=== PATIENT | female | born 1985 | race Caucasian/White ===

== ENCOUNTER 2018-09-03 16:38 | Emergency (ER) | payer MEDICAID, OTHER ==
[~2018-09-03] VITALS: Ht 160 cm; Wt 98.0 kg
[~2018-09-03 16:38] MED LIST: ACHD5005 PO; DCS100C PO; FRS325T PO; HYDR-1231 PO; HYDR-757 PO; Ibuprofen PO; KCL20TCR PO; NITR-65 PO; PREN1TAB25 PO
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
--- OUTSIDE RECORDS SUMMARY | 2018-09-03 16:45 | XMS REPORT ---
Author Author JOANN AGUILAR Organization [facility] Address [address] [place] [address] Care Team Providers Care Farmworker Fur Name Role Phone JOANN AGUILAR Unavailable PROBLEMS Unknown Problems ALLERGIES No Information ENCOUNTERS Encounter Location Date Diagnosis [facility] [id number] [place] [phone] Nov, [facility] [id number] [place] [phone] 10 Nov, 2017 Encounter for screening for dental disorder Z13.84 [facility] [id number] [place] [address] August, History of TB skin testing Z92.89 and Tuberculosis screening Z11.1 [facility] [address] [place] [phone] August, History of TB skin testing Z92.89 and Tuberculosis screening Z11.1 IMMUNIZATIONS No Known Immunizations SOCIAL HISTORY Never Assessed REASON FOR VISIT Xray (walk-in) MHill RT(R) PLAN OF CARE VITAL SIGNS MEDICATIONS Unknown Medications RESULTS Name Result Date Reference Range Xray : Chest 2 View (IN HOUSE) 2017-08-24 PROCEDURES Procedure Date Ordered Result Body Site X-RAY EXAM CHEST 2 VIEWS August 24, 2017 INSTRUCTIONS MEDICATIONS ADMINISTERED No Known Medications
--- OUTSIDE RECORDS SUMMARY | 2018-09-03 16:45 | XMS REPORT ---
Author Author JOANN AGUILAR [facility] Address [address] [place] [address] Care Team Providers Care Installer Molding And Trim Name Role Phone JOANN AGUILAR Unavailable PROBLEMS Unknown Problems ALLERGIES No Information ENCOUNTERS Encounter Location Date Diagnosis [facility] [id number] [place] [address] [phone] Nov, [facility] [id number] [place] [phone] 10 Nov, 2017 Encounter for screening for dental disorder Z13.84 [facility] [id number] [place] [address] August, History of TB skin testing Z92.89 and Tuberculosis screening Z11.1 [facility] [address] [place] [phone] August, History of TB skin testing Z92.89 and Tuberculosis screening Z11.1 IMMUNIZATIONS No Known Immunizations SOCIAL HISTORY Never Assessed REASON FOR VISIT TB Test PLAN OF CARE VITAL SIGNS MEDICATIONS Unknown Medications RESULTS No Results PROCEDURES No Known procedures INSTRUCTIONS MEDICATIONS ADMINISTERED No Known Medications
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
--- OUTSIDE RECORDS SUMMARY | 2018-09-03 16:45 | XMS REPORT | Continuity of Care Document ---
Author Organization Unknown Address Unknown Allergies There is no data. Medications There is no data. Problems There is no data. Procedures There is no data. Results There is no data. Encounters ACCT No. Visit Date/Time Discharge Status Pt. Type Provider Facility Loc./Unit Complaint [id number] 08/10/2018 16:40:00 08/10/2018 23:59:59 [facility] Outpatient LEONA CARUSO [facility] [id number] 10/01/2013 18:27:00 10/03/2013 11:00:00 DIS Inpatient [id number] 09/28/2013 15:07:00 09/29/2013 09:50:00 DIS Inpatient [id number] 05/31/2013 21:54:00 06/01/2013 00:11:00 DIS Emergency
[2018-09-03] MEDS ORDERED: NS IV 1000 ML 1,000 ML IV ONE (17:18)
[2018-09-03 17:30] LABS: BASOPHILS # (AUTO) 0.1 10^3/uL (0.0-0.1); BASOPHILS % (AUTO) 1 % (0-10); EOSINOPHILS # (AUTO) 0.1 10^3/uL (0.0-0.3); EOSINOPHILS % (AUTO) 2 % (0-10); HEMATOCRIT 43 % (35-52); HEMOGLOBIN 14.4 G/DL (11.5-16.0); LYMPHOCYTES % (AUTO) 11 % (12-44); MEAN CORPUSCULAR HEMOGLOBIN 30 PG (25-34); MEAN CORPUSCULAR HGB CONC 33 G/DL (32-36); MEAN CORPUSCULAR VOLUME 90 FL (80-99); MEAN PLATELET VOLUME 10.5 FL (7.4-10.4); MONOCYTES # (AUTO) 0.9 X 10^3 (0.0-1.0); MONOCYTES % (AUTO) 9 % (0-12); NEUTROPHILS # (AUTO) 7.4 X 10^3 (1.8-7.8); NEUTROPHILS % (AUTO) 78 % (42-75); PLATELET COUNT 256 10^3/uL (130-400); RED CELL DISTRIBUTION WIDTH 12.3 % (10.0-14.5); WHITE BLOOD COUNT 9.5 10^3/uL (4.3-11.0)
[2018-09-03] MEDS ORDERED: KETOROLAC 30 MG/ML VIAL IVP ONE (17:30)
[2018-09-03] MEDS ORDERED: ACETAMINOPHEN 500 MG TAB (TYLENOL) PO ONE (17:30)
[2018-09-03 17:53] LABS: ALANINE AMINOTRANSFERASE 35 U/L (0-55); ALBUMIN 4.1 GM/DL (3.2-4.5); ALKALINE PHOSPHATASE 56 U/L (40-136); BILIRUBIN,TOTAL 0.4 MG/DL (0.1-1.0); BUN/CREATININE RATIO 9; CALCIUM 9.1 MG/DL (8.5-10.1); CARBON DIOXIDE 25 MMOL/L (21-32); CHLORIDE 105 MMOL/L (98-107); CREATININE SERUM 0.97 MG/DL (0.60-1.30); GFR ESTIMATED > 60; GLUCOSE 98 MG/DL (70-105); POTASSIUM 3.9 MMOL/L (3.6-5.0); SODIUM 138 MMOL/L (135-145); TOTAL PROTEIN 7.1 GM/DL (6.4-8.2)
[2018-09-03 17:57] LABS: BILIRUBIN,URINE NEGATIVE (NEGATIVE); CLARITY,URINE CLEAR; COLOR,URINE YELLOW; GLUCOSE, URINE (UA) NEGATIVE (NEGATIVE); KETONES,URINE NEGATIVE (NEGATIVE); LEUKOCYTE ESTERASE ,URINE NEGATIVE (NEGATIVE); NITRITE,URINE NEGATIVE (NEGATIVE); PH,URINE 8 (5-9); PROTEIN,URINE NEGATIVE (NEGATIVE); UROBILINOGEN,URINE NORMAL (NORMAL)
[2018-09-03 18:07] LABS: BACTERIA,URINE NEGATIVE /HPF
[2018-09-03 18:14] LABS: PROTHROMBIN TIME PATIENT 13.7 SEC (12.2-14.7)
--- NOTE | 2018-09-03 18:46 | ED General ---
General Chief Complaint: Fever-Adult/Adol Stated Complaint: FEVER 102/ELEV BP 166/90 Nursing Triage Note: Pt to ED with c/o fever as high as "almost 103" today. Pt also c/o cough, sore throat, fatigue, weakness, malaise. Pt reports working at [facility] and had a negative strep screen, and negative chest xray there today. Pt reports symptoms began today. Pt denies taking any antipyretics. Nursing Sepsis Screen: No Definite Risk Source of Information: Patient Exam Limitations: No Limitations History of Present Illness Date Seen by Provider: September 03, 2018 Time Seen by Provider: 17:04 Initial Comments This 33-year-old young lady presents to the emergency room with complaints of fever, cough, sore throat, and myalgias of abrupt onset today. She had to strep test performed, one at home and one at the clinic, both of which were negative. She also had a chest x-ray performed at [facility] where she works. This x-ray was unremarkable. Patient was advised by other staff to come to the emergency room for evaluation. She is notably tachycardic on presentation. Allergies and Home Medications Allergies Coded Allergies: latex (Verified Allergy, Mild, 05/31/13) cefpodoxime (Verified Allergy, Unknown, 09/28/13) Home Medications Docusate Sodium 100 Mg Cap, 100 MG PO BID PRN for CONSTIPATION Prescribed by: CADEN JIANG on 10/02/1352 Ferrous Sulfate 325 Mg Tab, 325 MG PO DAILY@0700 Prescribed by: CADEN JIANG on 10/02/13 0852 Hydrocodone Bit/Acetaminophen 1 Tab Tab, 2 TAB PO Q4H PRN for pain Prescribed by: CADEN JIANG on 10/02/13 0852 Vit#96/Ferrous Fum/Fa 1 Each Tablet, 1 EACH PO DAILY, (Reported) [Ibuprofen] 600 MG TAB, 600 MG PO Q6H PRN for PAIN Prescribed by: CADEN JIANG on 10/02/13 0852 Patient Home Medication List Home Medication List Reviewed: Yes Review of Systems Review of Systems Constitutional: see HPI EENTM: see HPI Respiratory: see HPI Cardiovascular: see HPI Gastrointestinal: no symptoms reported Genitourinary: no symptoms reported : No Musculoskeletal: see HPI Skin: no symptoms reported Psychiatric/Neurological: No Symptoms Reported Hematologic/Lymphatic: No Symptoms Reported Immunological/Allergic: no symptoms reported Past Sytjldk-Ibguuw-Eozwpw Hx Past Med/Social Hx: Reviewed and Corrections made Patient Social History Alcohol Use: Occasionally Uses Recreational Drug Use: No Smoking Status: Current Everyday Smoker Type Used: Cigarettes 2nd Hand Smoke Exposure: Yes Recent Foreign Travel: No Contact w/Someone Who Travel: No Recent Infectious Disease Expo: No Immunizations Up To Date Tetanus Booster (TDap): Unknown Date of Influenza Vaccine: Jan 24, 2013 Past Medical History Surgeries: Yes Appendectomy, Section, Gallbladder, Tubal Ligation Respiratory: No Cardiac: No Neurological: No : No Reproductive Disorders: No Gastrointestinal: No Musculoskeletal: No Endocrine: Yes (Previous hx of thyroid disease. ) Cancer: No Psychosocial: No Integumentary: No Blood Disorders: No Physical Exam Vital Signs Vital Signs - First Documented 09/03/18 16:50 Temp 98.3 Pulse 129 Resp 18 B/P (MAP) 142/90 (107) Pulse Ox 99 O2 Delivery Room Air Capillary Refill : Less Than 3 Seconds Height, Weight, BMI Height: 5'3.00" Weight: 216lbs. 0.0oz. 97.925085tn; BMI Method:Stated General Appearance: No Apparent Distress, WD/WN HEENT: PERRL/EOMI, TMs Normal, Normal ENT Inspection, Pharynx Normal Neck: Normal Inspection Respiratory: Lungs Clear, Normal Breath Sounds, No Accessory Muscle Use, No Respiratory Distress Cardiovascular: No Edema, No Murmur, Normal Peripheral Pulses, Tachycardia Gastrointestinal: Normal Bowel Sounds, Non Tender, Soft Extremity: Normal Inspection, No Pedal Edema Neurologic/Psychiatric: Alert, Oriented x3, No Motor/Sensory Deficits, Normal Mood/Affect, management expert II-XII Norm as Tested Skin: Normal Color, Warm/Dry Focused Exam Lactate Level 09/03/18 17:10: Lactic Acid Level 0.97 Lactic Acid Level Progress/Results/Core Measures Suspected Sepsis Recent Fever Within 48 Hours: No Infection Criteria Present: None New/Unexplained Altered Menta: No Sepsis Screen: No Definite Risk SIRS Temperature:98.3 Pulse: 129 Respiratory Rate: 18 Laboratory Tests 09/03/18 17:10: White Blood Count 9.5 Blood Pressure 142 /90 Mean: 107 09/03/18 17:10: Lactic Acid Level 0.97 Laboratory Tests 09/03/18 17:10: Creatinine 0.97, INR Comment 1.0, Platelet Count 256, Total Bilirubin 0.4 Results/Orders Lab Results Laboratory Tests Test 09/03/18 17:10 09/03/18 17:48 Range/Units White Blood Count 9.5 4.3-11.0 10^3/uL Red Blood Count 4.79 4.35-5.85 10^6/uL Hemoglobin 14.4 11.5-16.0 G/DL Hematocrit 43 35-52 % Mean Corpuscular Volume 90 80-99 FL Mean Corpuscular Hemoglobin 30 25-34 PG Mean Corpuscular Hemoglobin Concent 33 32-36 G/DL Red Cell Distribution Width 12.3 10.0-14.5 % Platelet Count 256 130-400 10^3/uL Mean Platelet Volume 10.5 H 7.4-10.4 FL Neutrophils (%) (Auto) 78 H 42-75 % Lymphocytes (%) (Auto) 11 L 12-44 % Monocytes (%) (Auto) 9 0-12 % Eosinophils (%) (Auto) 2 0-10 % Basophils (%) (Auto) 1 0-10 % Neutrophils # (Auto) 7.4 1.8-7.8 X 10^3 Lymphocytes # (Auto) 1.0 1.0-4.0 X 10^3 Monocytes # (Auto) 0.9 0.0-1.0 X 10^3 Eosinophils # (Auto) 0.1 0.0-0.3 10^3/uL Basophils # (Auto) 0.1 0.0-0.1 10^3/uL Prothrombin Time 13.7 12.2-14.7 SEC INR Comment 1.0 0.8-1.4 Activated Partial Thromboplast Time 31 24-35 SEC Sodium Level 138 135-145 MMOL/L Potassium Level 3.9 3.6-5.0 MMOL/L Chloride Level 105 98-107 MMOL/L Carbon Dioxide Level 25 21-32 MMOL/L Anion Gap 8 5-14 MMOL/L Blood Urea Nitrogen 9 7-18 MG/DL Creatinine 0.97 0.60-1.30 MG/DL Estimat Glomerular Filtration Rate > 60 BUN/Creatinine Ratio 9 Glucose Level 98 70-105 MG/DL Lactic Acid Level 0.97 0.50-2.00 MMOL/L Calcium Level 9.1 8.5-10.1 MG/DL Corrected Calcium 9.0 8.5-10.1 MG/DL Total Bilirubin 0.4 0.1-1.0 MG/DL Aspartate Amino Transf (AST/SGOT) 33 5-34 U/L Alanine Aminotransferase (ALT/SGPT) 35 0-55 U/L Alkaline Phosphatase 56 40-136 U/L C-Reactive Protein High Sensitivity 0.90 H 0.00-0.50 MG/DL Total Protein 7.1 6.4-8.2 GM/DL Albumin 4.1 3.2-4.5 GM/DL Serum Test, Qualitative NEGATIVE NEGATIVE Monoscreen NEGATIVE NEGATIVE Urine Color YELLOW Urine Clarity CLEAR Urine pH 8 5-9 Urine Specific [place] 1.010 L 1.016-1.022 Urine Protein NEGATIVE NEGATIVE Urine Glucose (UA) NEGATIVE NEGATIVE Urine Ketones NEGATIVE NEGATIVE Urine Nitrite NEGATIVE NEGATIVE Urine Bilirubin NEGATIVE NEGATIVE Urine Urobilinogen NORMAL NORMAL MG/DL Urine Leukocyte Esterase NEGATIVE NEGATIVE Urine RBC (Auto) NEGATIVE NEGATIVE Urine RBC NONE /HPF Urine WBC NONE /HPF Urine Squamous Epithelial Cells 2-5 /HPF Urine Crystals NONE /LPF Urine Bacteria NEGATIVE /HPF Urine Casts NONE /LPF Urine Mucus NEGATIVE /LPF Urine Culture Indicated CULTURE PENDING Micro Results Microbiology 09/03/18 Influenza Types A,B Antigen ([facility]) - Final, Complete My Orders Orders - JIM MELÉNDEZ MD Cbc With Automated Diff (09/03/18 17:05) Comprehensive Metabolic Panel (09/03/18 17:05) Blood Culture (09/03/18 17:05) Urinalysis (09/03/18 17:05) Urine Culture (09/03/18 17:05) Protime With Inr (09/03/18 17:05) Partial Thromboplastin Time (09/03/18 17:05) Ed Iv/Invasive Line Start (09/03/18 17:05) Vital Signs Adult Sepsis Patie Q15M (09/03/18 17:05) O2 (09/03/18 17:05) Remove Rings In Anticipation O (09/03/18 17:05) Lactic Acid Analyzer (09/03/18 17:05) Hs C Reactive Protein (09/03/18 17:05) Hcg,Qualitative Serum (09/03/18 17:05) Monotest (09/03/18 17:05) Influenza A And B Antigens (09/03/18 17:05) Ns Iv 1000 Ml (Sodium Chloride 0.9%) (09/03/18 17:18) Acetaminophen Tablet (Tylenol Tablet) (09/03/18 17:30) Ketorolac Injection (Toradol Injection) (09/03/18 17:30) Medications Given in ED Vital Signs/I&O Capillary Refill : Less Than 3 Seconds Blood Pressure Mean: 107 Progress Note : Progress Note Workup was unremarkable. Toradol and Tylenol were given for symptom management. Patient was hydrated with a liter of IV fluids. Patient is suspected of having a viral illness. Chest x-ray report from [facility] was reviewed. Diagnostic Imaging Diagonstic Imaging: Xray Plain Films/CT/US/NM/MRI: chest Comments Chest x-ray report from [facility] reviewed. There were no acute abnormalities. Departure Impression Primary Impression: Febrile illness Additional Impressions: Sore throat Myalgia Disposition: HOME, SELF-CARE Condition: Improved Departure-Patient Inst. Decision time for Depature: 18:45 Referrals: ROBERTO JOVEL (PCP) Primary Care Physician CADEN JIANG DO (Family) Primary Care Physician Patient Instructions: Fever, Adult (DC) Add. Discharge Instructions: Drink plenty of clear liquids. You may use Tylenol (acetaminophen) up to 1000 mg every 6 hours as needed and/or ibuprofen up to 600 mg every 6 hours as needed for pain or fever. Do not return to work until you are fever free without medications for at least 24 hours. Return to care if you have worsening symptoms. All discharge instructions reviewed with patient and/or family. Voiced underst anding. JIM MELÉNDEZ MD September 03, 2018 18:46
[2018-09-03 19:06] VITALS: BP 141/78
== END 2018-09-03 19:06 | disposition home or self-care (01) ==
LOC: EDUNIT# 16:38 → ER 16:40
DX: J02.9 Acute pharyngitis, unspecified (principal); M79.10 Myalgia, unspecified site; F17.210 Nicotine dependence, cigarettes, uncomplicated; Z91.040 Latex allergy status; Z88.8 Allergy status to other drugs, medicaments and biological substances; Z90.49 Acquired absence of other specified parts of digestive tract; Z98.51 Tubal ligation status; Z98.890 Other specified postprocedural states
CPT/HCPCS: 36415; 80053; 81000; 83605; 84703; 85025; 85610; 85730; 86141; 86308; 87040; 87088; 87804

== ENCOUNTER → 2019-05-04 | Outpatient (CLI) | payer OTHER ==
--- NOTE | 2019-05-04 14:47 | Diagnostic Imaging Report ---
PROCEDURE: CT head without contrast. TECHNIQUE: Multiple contiguous axial images were obtained through the brain without the use of intravenous contrast. Auto Exposure Controls were utilized during the CT exam to meet ALARA standards for radiation dose reduction. INDICATION: Blurred vision and confusion. COMPARISON: No prior studies are available for comparison. FINDINGS: Ventricles and sulci are within normal limits. No sulcal effacement or midline shift is detected. No acute intra-axial or extra-axial hemorrhage is detected. Cisterns are patent. Visualized paranasal sinuses demonstrate some mucosal thickening of the sphenoid. IMPRESSION: Sphenoid sinus mucosal disease. No acute intracranial process is detected. Dictated by: Dictated on workstation # [id number]
[2019-05-04 14:48] LABS: BASOPHILS # (AUTO) 0.1 10^3/uL (0.0-0.1); BASOPHILS % (AUTO) 1 % (0-10); EOSINOPHILS # (AUTO) 0.2 10^3/uL (0.0-0.3); EOSINOPHILS % (AUTO) 2 % (0-10); HEMATOCRIT 45 % (35-52); HEMOGLOBIN 14.7 G/DL (11.5-16.0); LYMPHOCYTES # (AUTO) 3.2 X 10^3 (1.0-4.0); LYMPHOCYTES % (AUTO) 29 % (12-44); MEAN CORPUSCULAR HEMOGLOBIN 30 PG (25-34); MEAN CORPUSCULAR HGB CONC 33 G/DL (32-36); MEAN CORPUSCULAR VOLUME 92 FL (80-99); MEAN PLATELET VOLUME 9.7 FL (7.4-10.4); MONOCYTES # (AUTO) 1.1 X 10^3 (0.0-1.0); MONOCYTES % (AUTO) 10 % (0-12); NEUTROPHILS # (AUTO) 6.5 X 10^3 (1.8-7.8); NEUTROPHILS % (AUTO) 59 % (42-75); PLATELET COUNT 303 10^3/uL (130-400); RED CELL DISTRIBUTION WIDTH 12.5 % (10.0-14.5)
[2019-05-04 15:15] LABS: ALBUMIN 3.9 GM/DL (3.2-4.5); BILIRUBIN,TOTAL 0.6 MG/DL (0.1-1.0); CALCIUM 9.3 MG/DL (8.5-10.1); CREATININE SERUM 1.17 MG/DL (0.60-1.30); MAGNESIUM 2.1 MG/DL (1.6-2.4); TOTAL PROTEIN 6.7 GM/DL (6.4-8.2)
== END ==
LOC: RAD 14:19
PROVIDERS: ATTEND Family Medicine
DX: J32.3 Chronic sphenoidal sinusitis (principal); I10 Essential (primary) hypertension; H53.8 Other visual disturbances; R47.89 Other speech disturbances
CPT/HCPCS: 36415; 70450; 80053; 83735; 84443; 85025

== ENCOUNTER → 2021-02-11 | Outpatient (CLI) | payer OTHER | LOC: ORTHO 11:21 | PROVIDERS: ATTEND Orthopaedic Surgery | DX: S83.411A Sprain of medial collateral ligament of right knee, initial encounter (principal); S83.001A Unspecified subluxation of right patella, initial encounter; X58.XXXA Exposure to other specified factors, initial encounter | CPT/HCPCS: 99203 ==

== ENCOUNTER → 2021-03-04 | Outpatient (CLI) | payer OTHER | LOC: ORTHO 11:00 | PROVIDERS: ATTEND Orthopaedic Surgery | DX: S83.411A Sprain of medial collateral ligament of right knee, initial encounter (principal); S83.191A Other subluxation of right knee, initial encounter; X58.XXXA Exposure to other specified factors, initial encounter | CPT/HCPCS: 99212 ==

== ENCOUNTER 2021-04-11 15:57 | Outpatient (RCR) | payer OTHER | END 2021-04-12 | disposition home or self-care (01) | PROVIDERS: ATTEND Orthopaedic Surgery | DX: S83.011D Lateral subluxation of right patella, subsequent encounter (principal); X58.XXXD Exposure to other specified factors, subsequent encounter | CPT/HCPCS: 97161; G0283 ==

== ENCOUNTER 2021-04-17 15:56 | Outpatient (RCR) | payer OTHER | END 2021-05-13 | disposition home or self-care (01) | PROVIDERS: ATTEND Orthopaedic Surgery | DX: S83.011D Lateral subluxation of right patella, subsequent encounter (principal); X58.XXXD Exposure to other specified factors, subsequent encounter ==